=== PATIENT | male | born 1980 | race Two or more races ===

== ENCOUNTER → 2017-03-15 | Outpatient (CLI) | payer OTHER ==
[2017-03-15 08:51] LABS: Calcium 8.6 mg/dL (8.5-10.1); Potassium 3.9 mmol/L (3.5-5.1)
== END | disposition home or self-care (01) ==
LOC: CT 07:35
DX: N40.0 Benign prostatic hyperplasia without lower urinary tract symptoms (principal); Z98.890 Other specified postprocedural states
CPT/HCPCS: 36415; 72193; 80048